=== PATIENT | male | born 1995 | race Caucasian/White ===

== ENCOUNTER 2018-02-12 21:26 | Emergency (ER) | payer MEDICAID ==
[~2018-02-12] VITALS: Ht 167.6 cm; Wt 72.7 kg
[2018-02-12 21:30] VITALS: Ht 167.6 cm; Wt 72.7 kg
[2018-02-12 21:44] LABS: APPEARANCE HAZY (CLEAR); COLOR STRAW (YELLOW); GLUCOSE NEGATIVE (NEGATIVE); KETONE NEGATIVE (NEGATIVE); NITRITE NEGATIVE (NEGATIVE); PROTEIN NEGATIVE (NEGATIVE)
[2018-02-12 21:45] LABS: BILIRUBIN NEGATIVE (NEGATIVE); UROBILINOGEN NORMAL (NORMAL)
[2018-02-12 21:47] LABS: RED CELLS - URINE 0-5 /hpf (0-5)
[2018-02-12 21:48] LABS: BACTERIA MODERATE /hpf (NONE SEEN)
[2018-02-12] MEDS ORDERED: CIPRO250 MG PO (22:07)
[2018-02-12 22:12] VITALS: BP 120/78
[2018-02-13] MEDS ORDERED: COMPAZINE5 MG PO (00:54)
== END 2018-02-12 22:14 | disposition home or self-care (01) ==
LOC: D.ER 21:26
PROVIDERS: Emergency Medicine
DX: N39.0 Urinary tract infection, site not specified (principal); Z72.51 High risk heterosexual behavior; F17.200 Nicotine dependence, unspecified, uncomplicated

== ENCOUNTER 2018-02-12 23:49 | Emergency (ER) | payer MEDICAID ==
[~2018-02-12] VITALS: Ht 167.6 cm; Wt 85.9 kg
[~2018-02-12 23:49] MED LIST: CIPRO250 MG PO
[2018-02-12 23:59] VITALS: Ht 167.6 cm; Wt 85.9 kg
[2018-02-13] MEDS ORDERED: COMPAZINE5 MG PO (00:54)
[2018-02-13 01:11] VITALS: BP 126/77
== END 2018-02-13 01:12 | disposition home or self-care (01) ==
LOC: D.ER 23:49
DX: R11.2 Nausea with vomiting, unspecified (principal); R10.84 Generalized abdominal pain

== ENCOUNTER 2018-02-25 03:38 | Emergency (ER) | payer MEDICAID ==
[~2018-02-25] VITALS: Ht 167.6 cm; Wt 90.7 kg
[~2018-02-25 03:38] MED LIST changes: +COMPAZINE5 MG PO
[2018-02-25 03:49] VITALS: Ht 167.6 cm; Wt 90.7 kg
[2018-02-25 04:20] LABS: BASOPHILS 0.5 % (0-2); EOSINOPHILS 3.2 % (0-7); HEMATOCRIT 47.6 % (42.0-54.0); HEMOGLOBIN 16.1 g/dL (13.5-17.5); IMMATURE GRANULOCYTES 0.3 % (0-5); LYMPHOCYTES 22.9 % (15-50); MCH 30.2 pg (26.0-34.0); MCHC 33.8 g/dL (31.0-37.0); MCV 89.3 fL (80.0-100.0); MONOCYTES 9.4 % (2-11); NEUTROPHILS 63.7 % (40-80); PLATELET COUNT 222 10x3/uL (130-400); RBC 5.33 10x6/uL (4.20-6.10); RDW 13.5 % (11.5-14.5); WBC 7.7 10x3/uL (4.8-10.8)
[2018-02-25 04:30] LABS: APPEARANCE TURBID (CLEAR); BACTERIA MANY /hpf (NONE SEEN); BILIRUBIN NEGATIVE (NEGATIVE); COLOR YELLOW (YELLOW); EPITHELIAL CELLS NSEEN /hpf (0-5); GLUCOSE NEGATIVE (NEGATIVE); KETONE NEGATIVE (NEGATIVE); NITRITE NEGATIVE (NEGATIVE); PROTEIN 1+ mg/dL (NEGATIVE); RED CELLS - URINE 0-5 /hpf (0-5); UROBILINOGEN NORMAL (NORMAL); WHITE CELLS - URINE >50 /hpf (0-5)
[2018-02-25 04:32] LABS: CALC OSMOLALITY 276 mosm/kg (275-300); CALCIUM 9.2 mg/dL (8.5-10.1); CHLORIDE - SERUM 102 mmol/L (98-107); CREATININE - SERUM 1.1 mg/dL (0.6-1.3); GLUCOSE 101 mg/dL (74-106); POTASSIUM - SERUM 3.9 mmol/L (3.5-5.1); SODIUM 139 mmol/L (136-145); UREA NITROGEN 10 mg/dL (7-18); eGFR NON AFRICAN AMERICAN 87 mL/min (90-120)
[2018-02-25] MEDS ORDERED: CIPRO500 MG PO (04:42)
[2018-02-25 06:17] VITALS: BP 123/83
== END 2018-02-25 06:18 | disposition home or self-care (01) ==
LOC: D.ER 03:38
PROVIDERS: Emergency Medicine
DX: N39.0 Urinary tract infection, site not specified (principal); F17.200 Nicotine dependence, unspecified, uncomplicated